=== PATIENT | female | born 1970 | race Caucasian/White ===

== ENCOUNTER 2021-04-30 16:59 | Inpatient (IN) | payer OTHER ==
[~2021-04-30] VITALS: Ht 162.6 cm; Wt 88.5 kg
[~2021-04-30 16:59] MED LIST: ZESTRIL10 M1 PO
[2021-05-01] MEDS ORDERED: DICLOFENAC SODI50 MG (10:22)
[2021-05-01] MEDS ORDERED: CLONAZEPAM0.5 MG (10:22)
== END 2021-05-04 11:33 | disposition home or self-care (01) | DRG 735 ==
LOC: O/R 05-01 09:06 → OB/GYN 05-01 09:06 → SURH 05-01 11:15 → OB/GYN 05-01 14:25
PROVIDERS: ADMIT Specialist; ATTEND Specialist
PROC: 0UT94ZZ Resection of Uterus, Percutaneous Endoscopic Approach (ICD-10-PCS; 2021-05-01)
PROC: 0UT74ZZ Resection of Bilateral Fallopian Tubes, Percutaneous Endoscopic Approach (ICD-10-PCS; 2021-05-01)
PROC: 0UT24ZZ Resection of Bilateral Ovaries, Percutaneous Endoscopic Approach (ICD-10-PCS; 2021-05-01)
PROC: 3E1M38Z Irrigation of Peritoneal Cavity using Irrigating Substance, Percutaneous Approach (ICD-10-PCS; 2021-05-01)
PROC: 07TC4ZZ Resection of Pelvis Lymphatic, Percutaneous Endoscopic Approach (ICD-10-PCS; principal; 2021-05-01 11:15)
DX: C54.1 Malignant neoplasm of endometrium (principal); D27.0 Benign neoplasm of right ovary; N72 Inflammatory disease of cervix uteri; N84.0 Polyp of corpus uteri; N83.12 Corpus luteum cyst of left ovary; Z20.822 Contact with and (suspected) exposure to COVID-19

== ENCOUNTER 2021-05-06 14:26 | Inpatient (IN) | payer OTHER ==
[~2021-05-06] VITALS: Ht 162.6 cm; Wt 92.5 kg
[~2021-05-06 14:26] MED LIST changes: +CLONAZEPAM0.5 MG; +DICLOFENAC SODI50 MG
[2021-05-06] MEDS ORDERED: KETOROLAC30 MG/1 M2 (15:12)
--- NOTE | 2021-05-06 15:13 | NUR ---
SE RECIBE PACIENTE ALERTA Y ORIENTADA EN TIEMPO LUGAR Y PERSONA. REFIERE QUE LE REALIZARON JESS HISTERECTOMIA TOTAL EL MIERCOLES [address] POR EL DR[address] SAMUEL DICKERSON. LA MISMA REFIERE QUE DESDE ENTONCES QUIROZ PRESENTADO DOLOR ABDOMINAL KRISTINA GENERALIZADO. PACIENTE VERBALIZA QUE DR. CRAVEN REFIERE VENIR A ROSA DE EMERGENCIAS PARA REALIZAR UN CT SCAN. SE JUS SIGNOS VITALES Y SE UBICA PACIENTE.
--- NOTE | 2021-05-06 16:52 | NUR ---
SE EJECUTA ORDEN MEDICA EN SHELTON TOTALIDA,D PACIENTE SE LE REALIZAN MUESTRAS DE MATTHEW Y ADMINISTRACION DE TERAPIA INTRAVENOSA. SE MANTIENE EN OBSERVACION EN ESPERA DE REALIZAR CT YA NOTIFICADO.
[2021-05-08] MEDS ORDERED: CLONAZEPAM0.5 MG (14:48)
[2021-05-08] MEDS ORDERED: DICLOFENAC SODI50 MG (14:49)
[2021-05-08] MEDS ORDERED: CABERGOLINE0.5 MG (14:49)
[2021-05-08] MEDS ORDERED: ESTAZOLAM2 MG (14:49)
== END 2021-05-09 13:08 | disposition home or self-care (01) | DRG 660 ==
LOC: ER 14:26 → OB/GYN 20:48
PROVIDERS: ADMIT Obstetrics & Gynecology; ATTEND Obstetrics & Gynecology
PROC: BW2110Z Computerized Tomography (CT Scan) of Abdomen and Pelvis using Low Osmolar Contrast, Unenhanced and Enhanced (ICD-10-PCS; 2021-05-06)
PROC: 0T133JD Bypass Right Kidney Pelvis to Cutaneous with Synthetic Substitute, Percutaneous Approach (ICD-10-PCS; principal; 2021-05-08)
DX: S37.13XA Laceration of ureter, initial encounter (principal); N13.1 Hydronephrosis with ureteral stricture, not elsewhere classified; C54.1 Malignant neoplasm of endometrium; Z90.710 Acquired absence of both cervix and uterus; Z90.722 Acquired absence of ovaries, bilateral

== ENCOUNTER 2021-06-18 08:07 | Outpatient (CLI) | payer OTHER ==
[~2021-06-18 08:07] MED LIST changes: +CABERGOLINE0.5 MG; +ESTAZOLAM2 MG; +KETOROLAC30 MG/1 M2
== END 2021-06-18 08:34 | disposition home or self-care (01) ==
LOC: TOM 08:07
PROVIDERS: ATTEND Urology
DX: N13.1 Hydronephrosis with ureteral stricture, not elsewhere classified (principal)

== ENCOUNTER 2021-07-29 09:53 | Outpatient (CLI) | payer OTHER | END 2021-07-29 09:55 | disposition home or self-care (01) | LOC: RX STUDY 09:53 | PROVIDERS: ATTEND Urology | DX: N13.1 Hydronephrosis with ureteral stricture, not elsewhere classified (principal) ==